=== PATIENT | female | born 1955 | race Caucasian/White ===

== ENCOUNTER 2019-10-15 08:44 | Inpatient (IN) ==
[2019-10-15] MEDS ORDERED: Senna TAB 8.6 mg TAB PO PRN (12:36)
[2019-10-15] MEDS ORDERED: Magnesium Hydroxide LIQ 30 ML UDC PO PRN (12:36)
[2019-10-15] MEDS: Amoxicillin 500 mg CAP (*) PO SCH ×2 (15:13→19:55)
[2019-10-15] MEDS: Enoxaparin 40 MG/0.4 ML SYR(*) SUBCUT SCH (17:58)
[2019-10-15] MEDS: Mometasone/Formoter 200/5 MDI INH SCH (19:56)
[2019-10-16 05:31] LABS: ABS Eosinophils 0.1 10^3/ul (0-0.6); ABS Lymphocytes 1.4 10^3/ul (1.0-4.8); ABS Monocytes 0.9 10^3/ul (0-0.8); Eosinophil % 1.1 %; Hematocrit 26 % (35-47); Mean Corpuscular HGB Conc 35 g/dL (31-36); Mean Corpuscular Hemoglobin 34 pg (27-31); Mean Corpuscular Volume 97 fL (80-97); Mean Platelet Volume 7.9 fL (7.4-10.4); Platelet Count 189 10^3/uL (150-450); Red Blood Count 2.67 10^6 /uL (3.70-4.87); Red Cell Distribution Width 13 % (10-15)
[2019-10-16 05:52] LABS: Albumin 2.9 g/dL (3.2-5.2); Albumin/Globulin Ratio 1.1 (1-3); BUN/Creatinine Ratio 21.3 (8-20); Calcium 8.6 mg/dL (8.6-10.3); EGFR African American 119.1 (>60); EGFR Non-African American 98.4 (>60); Globulin 2.6 g/dL (2-4); Potassium 4.6 mmol/L (3.5-5.0); Total Bilirubin 0.4 mg/dL (0.2-1.0); Total Protein 5.5 g/dL (6.4-8.9)
[2019-10-16] MEDS: Mometasone/Formoter 200/5 MDI INH SCH ×2 (08:43→20:10)
[2019-10-16] MEDS: Amoxicillin 500 mg CAP (*) PO SCH ×3 (08:44→20:09)
[2019-10-16] MEDS: Enoxaparin 40 MG/0.4 ML SYR(*) SUBCUT SCH (17:25)
[2019-10-16] MEDS: Albuterol HFA INHALER 8 gm MDI INH PRN (20:21)
[2019-10-17] MEDS: Amoxicillin 500 mg CAP (*) PO SCH ×3 (09:03→20:51)
[2019-10-17] MEDS: Mometasone/Formoter 200/5 MDI INH SCH ×2 (09:04→20:52)
[2019-10-17] MEDS: Enoxaparin 40 MG/0.4 ML SYR(*) SUBCUT SCH (16:24)
[2019-10-17] MEDS: Albuterol HFA INHALER 8 gm MDI INH PRN (16:29)
[2019-10-18] MEDS: Amoxicillin 500 mg CAP (*) PO SCH ×3 (08:18→20:23)
[2019-10-18] MEDS: Mometasone/Formoter 200/5 MDI INH SCH ×2 (08:18→20:23)
[2019-10-18] MEDS: Enoxaparin 40 MG/0.4 ML SYR(*) SUBCUT SCH (16:48)
[2019-10-19] MEDS: Amoxicillin 500 mg CAP (*) PO SCH ×3 (08:15→20:50)
[2019-10-19] MEDS: Mometasone/Formoter 200/5 MDI INH SCH ×2 (08:16→20:51)
[2019-10-19] MEDS: Enoxaparin 40 MG/0.4 ML SYR(*) SUBCUT SCH (16:42)
[2019-10-20] MEDS: Amoxicillin 500 mg CAP (*) PO SCH ×3 (11:16→20:04)
[2019-10-20] MEDS: Mometasone/Formoter 200/5 MDI INH SCH ×2 (11:16→20:05)
[2019-10-20] MEDS: Enoxaparin 40 MG/0.4 ML SYR(*) SUBCUT SCH (17:09)
[2019-10-20] MEDS: Potassium Chlor 10 meq TAB PO SCH (20:05)
[2019-10-21] MEDS: Mometasone/Formoter 200/5 MDI INH SCH ×2 (07:59→20:49)
[2019-10-21] MEDS: Albuterol HFA INHALER 8 gm MDI INH PRN (11:30)
[2019-10-21] MEDS: Enoxaparin 40 MG/0.4 ML SYR(*) SUBCUT SCH (17:02)
[2019-10-21] MEDS: Potassium Chlor 10 meq TAB PO SCH (20:49)
[2019-10-22 05:01] LABS: ABS Eosinophils 0.2 10^3/ul (0-0.6); ABS Lymphocytes 1.6 10^3/ul (1.0-4.8); ABS Monocytes 0.9 10^3/ul (0-0.8); Eosinophil % 3.3 %; Hematocrit 27 % (35-47); Hemoglobin 9.3 g/dL (12.0-16.0); Lymphocyte % 21.5 %; Mean Corpuscular HGB Conc 34 g/dL (31-36); Mean Corpuscular Hemoglobin 33 pg (27-31); Mean Corpuscular Volume 97 fL (80-97); Mean Platelet Volume 7.6 fL (7.4-10.4); Nucleated Red Blood Cells % 0.1; Platelet Count 365 10^3/uL (150-450); Red Cell Distribution Width 13 % (10-15); White Blood Count 7.2 10^3/uL (3.5-10.8)
[2019-10-22 05:20] LABS: BUN/Creatinine Ratio 32.6 (8-20); EGFR African American 74.1 (>60); EGFR Non-African American 61.3 (>60); Potassium 4.7 mmol/L (3.5-5.0)
[2019-10-22] MEDS: Mometasone/Formoter 200/5 MDI INH SCH ×2 (08:23→20:46)
[2019-10-22] MEDS: Enoxaparin 40 MG/0.4 ML SYR(*) SUBCUT SCH (16:54)
[2019-10-22] MEDS: Potassium Chlor 10 meq TAB PO SCH (20:45)
[2019-10-23 04:49] LABS: ABS Basophils 0.1 10^3/ul (0-0.2); ABS Eosinophils 0.2 10^3/ul (0-0.6); ABS Lymphocytes 1.5 10^3/ul (1.0-4.8); ABS Monocytes 0.8 10^3/ul (0-0.8); Eosinophil % 3.4 %; Hematocrit 28 % (35-47); Hemoglobin 9.4 g/dL (12.0-16.0); Lymphocyte % 20.2 %; Mean Corpuscular HGB Conc 34 g/dL (31-36); Mean Corpuscular Hemoglobin 33 pg (27-31); Mean Corpuscular Volume 98 fL (80-97); Mean Platelet Volume 7.6 fL (7.4-10.4); Nucleated Red Blood Cells % 0.1; Platelet Count 366 10^3/uL (150-450); Red Blood Count 2.85 10^6 /uL (3.70-4.87); Red Cell Distribution Width 13 % (10-15); White Blood Count 7.3 10^3/uL (3.5-10.8)
[2019-10-23 04:57] VITALS: BP 127/42
[2019-10-23 05:06] LABS: Albumin 3.2 g/dL (3.2-5.2); Albumin/Globulin Ratio 1.1 (1-3); BUN/Creatinine Ratio 37.9 (8-20); Calcium 9.1 mg/dL (8.6-10.3); EGFR African American 79.1 (>60); EGFR Non-African American 65.3 (>60); Globulin 2.9 g/dL (2-4); Potassium 4.6 mmol/L (3.5-5.0); Total Bilirubin 0.3 mg/dL (0.2-1.0); Total Protein 6.1 g/dL (6.4-8.9)
[2019-10-23] MEDS: Mometasone/Formoter 200/5 MDI INH SCH (08:45)
== END 2019-10-23 16:30 | disposition home health service (06) | DRG 560 ==
LOC: PMRU 11:33
PROVIDERS: ADMIT Physical Medicine & Rehabilitation; ATTEND Physical Medicine & Rehabilitation

== ENCOUNTER 2020-09-29 08:43 | Inpatient (IN) ==
[2020-09-29] MEDS ORDERED: Magnesium Hydroxide LIQ 30 ML UDC PO PRN (14:21)
[2020-09-29] MEDS ORDERED: Senna TAB 8.6 mg TAB PO PRN (14:21)
[2020-09-29] MEDS ORDERED: Albuterol HFA INHALER 8 gm MDI INH PRN (14:33)
[2020-09-29] MEDS ORDERED: oxyCODONE/Acetamin 5/325 mg TAB PO PRN (14:35)
[2020-09-29] MEDS: oxyCODONE/Acetamin 5/325 mg TAB PO PRN ×2 (17:13→20:54)
[2020-09-29] MEDS ORDERED: PTO:Budesonide/Formote 160/4.5(NF) MDI INH ONE (18:34)
[2020-09-30] MEDS: oxyCODONE/Acetamin 5/325 mg TAB PO PRN ×5 (03:23→21:48)
[2020-09-30 05:58] LABS: ABS Eosinophils 0.2 10^3/ul (0-0.6); ABS Lymphocytes 1.1 10^3/ul (1.0-4.8); ABS Monocytes 0.7 10^3/ul (0-0.8); ABS Neutrophils 4.4 10^3/ul (1.5-7.7); Eosinophil % 3.7 %; Hematocrit 26 % (35-47); Hemoglobin 9.1 g/dL (12.0-16.0); Lymphocyte % 17.2 %; Mean Corpuscular HGB Conc 35 g/dL (31-36); Mean Corpuscular Hemoglobin 32 pg (27-31); Mean Corpuscular Volume 94 fL (80-97); Mean Platelet Volume 8.7 fL (7.4-10.4); Nucleated Red Blood Cells % 0.1; Platelet Count 160 10^3/uL (150-450); Red Cell Distribution Width 16 % (10-15); White Blood Count 6.4 10^3/uL (3.5-10.8)
[2020-09-30 06:11] LABS: Albumin 2.8 g/dL (3.2-5.2); Calcium 8.3 mg/dL (8.6-10.3); Potassium 4.3 mmol/L (3.5-5.0); Total Bilirubin 0.5 mg/dL (0.2-1.0)
[2020-09-30 06:17] LABS: Albumin/Globulin Ratio 1.1 (1-3); EGFR African American 123.4 (>60); Globulin 2.5 g/dL (2-4); Total Protein 5.3 g/dL (6.4-8.9)
[2020-09-30] MEDS ORDERED: [UNRECOGNIZED DRUG - OTHER] INH SCH (09:00)
[2020-09-30] MEDS: FLUTICAS/UMECLI/VILANT 200-62.5-25 MDI (NF) INH SCH (12:40)
[2020-10-01] MEDS: oxyCODONE/Acetamin 5/325 mg TAB PO PRN ×5 (03:34→22:01)
[2020-10-01 05:47] LABS: ABS Eosinophils 0.2 10^3/ul (0-0.6); ABS Monocytes 0.7 10^3/ul (0-0.8); ABS Neutrophils 3.5 10^3/ul (1.5-7.7); Eosinophil % 4.1 %; Hematocrit 25 % (35-47); Hemoglobin 8.7 g/dL (12.0-16.0); Lymphocyte % 18.3 %; Mean Corpuscular HGB Conc 34 g/dL (31-36); Mean Corpuscular Hemoglobin 32 pg (27-31); Mean Corpuscular Volume 93 fL (80-97); Nucleated Red Blood Cells % 0.1; Platelet Count 177 10^3/uL (150-450); Red Blood Count 2.71 10^6 /uL (3.70-4.87); Red Cell Distribution Width 15 % (10-15); White Blood Count 5.5 10^3/uL (3.5-10.8)
[2020-10-01] MEDS: FLUTICAS/UMECLI/VILANT 200-62.5-25 MDI (NF) INH SCH (08:06)
[2020-10-02] MEDS: oxyCODONE/Acetamin 5/325 mg TAB PO PRN ×4 (03:10→19:51)
[2020-10-02] MEDS: FLUTICAS/UMECLI/VILANT 200-62.5-25 MDI (NF) INH SCH (08:55)
[2020-10-03] MEDS: oxyCODONE/Acetamin 5/325 mg TAB PO PRN ×5 (02:54→20:56)
[2020-10-03] MEDS: FLUTICAS/UMECLI/VILANT 200-62.5-25 MDI (NF) INH SCH (09:28)
[2020-10-04] MEDS: oxyCODONE/Acetamin 5/325 mg TAB PO PRN ×6 (01:08→23:05)
[2020-10-04] MEDS: FLUTICAS/UMECLI/VILANT 200-62.5-25 MDI (NF) INH SCH (09:38)
[2020-10-05] MEDS: oxyCODONE/Acetamin 5/325 mg TAB PO PRN ×5 (04:44→21:07)
[2020-10-05] MEDS: FLUTICAS/UMECLI/VILANT 200-62.5-25 MDI (NF) INH SCH (08:42)
[2020-10-06] MEDS: oxyCODONE/Acetamin 5/325 mg TAB PO PRN ×5 (01:40→22:40)
[2020-10-06] MEDS: FLUTICAS/UMECLI/VILANT 200-62.5-25 MDI (NF) INH SCH (10:00)
[2020-10-06] MEDS ORDERED: oxyCODONE/Acetamin 5/325 mg TAB PO PRN (16:13)
[2020-10-07] MEDS: oxyCODONE/Acetamin 5/325 mg TAB PO PRN ×5 (02:55→20:38)
[2020-10-07] MEDS: FLUTICAS/UMECLI/VILANT 200-62.5-25 MDI (NF) INH SCH (07:49)
[2020-10-07 08:22] LABS: ABS Eosinophils 0.3 10^3/ul (0-0.6); ABS Lymphocytes 1.6 10^3/ul (1.0-4.8); ABS Monocytes 0.6 10^3/ul (0-0.8); ABS Neutrophils 4.7 10^3/ul (1.5-7.7); Eosinophil % 3.5 %; Hematocrit 29 % (35-47); Hemoglobin 9.6 g/dL (12.0-16.0); Lymphocyte % 22.2 %; Mean Corpuscular HGB Conc 34 g/dL (31-36); Mean Corpuscular Hemoglobin 32 pg (27-31); Mean Corpuscular Volume 95 fL (80-97); Mean Platelet Volume 7.6 fL (7.4-10.4); Nucleated Red Blood Cells % 0.1; Platelet Count 380 10^3/uL (150-450); Red Cell Distribution Width 15 % (10-15); White Blood Count 7.2 10^3/uL (3.5-10.8)
[2020-10-07 08:41] LABS: Albumin 3.2 g/dL (3.2-5.2); Calcium 8.8 mg/dL (8.6-10.3); EGFR African American 104.7 (>60); EGFR Non-African American 86.6 (>60); Globulin 2.9 g/dL (2-4); Potassium 4.3 mmol/L (3.5-5.0); Total Protein 6.1 g/dL (6.4-8.9)
[2020-10-07 08:42] LABS: Albumin/Globulin Ratio 1.1 (1-3); Total Bilirubin 0.5 mg/dL (0.2-1.0)
[2020-10-08] MEDS: oxyCODONE/Acetamin 5/325 mg TAB PO PRN ×5 (01:22→19:17)
[2020-10-08] MEDS: FLUTICAS/UMECLI/VILANT 200-62.5-25 MDI (NF) INH SCH (10:30)
[2020-10-09] MEDS: oxyCODONE/Acetamin 5/325 mg TAB PO PRN ×6 (01:36→22:08)
[2020-10-09] MEDS: FLUTICAS/UMECLI/VILANT 200-62.5-25 MDI (NF) INH SCH (09:57)
[2020-10-10] MEDS: oxyCODONE/Acetamin 5/325 mg TAB PO PRN ×5 (05:36→22:14)
[2020-10-10] MEDS: FLUTICAS/UMECLI/VILANT 200-62.5-25 MDI (NF) INH SCH (09:33)
[2020-10-11] MEDS: oxyCODONE/Acetamin 5/325 mg TAB PO PRN ×4 (02:46→21:22)
[2020-10-11] MEDS: FLUTICAS/UMECLI/VILANT 200-62.5-25 MDI (NF) INH SCH (09:12)
[2020-10-12] MEDS: oxyCODONE/Acetamin 5/325 mg TAB PO PRN ×5 (01:51→21:52)
[2020-10-12] MEDS: FLUTICAS/UMECLI/VILANT 200-62.5-25 MDI (NF) INH SCH (10:39)
[2020-10-13] MEDS: oxyCODONE/Acetamin 5/325 mg TAB PO PRN ×5 (03:02→20:47)
[2020-10-13] MEDS: FLUTICAS/UMECLI/VILANT 200-62.5-25 MDI (NF) INH SCH (07:44)
[2020-10-14] MEDS: oxyCODONE/Acetamin 5/325 mg TAB PO PRN ×4 (01:44→15:03)
[2020-10-14 06:27] VITALS: BP 121/41
[2020-10-14 07:18] LABS: ABS Eosinophils 0.2 10^3/ul (0-0.6); ABS Lymphocytes 1.3 10^3/ul (1.0-4.8); ABS Monocytes 0.7 10^3/ul (0-0.8); ABS Neutrophils 3.6 10^3/ul (1.5-7.7); Eosinophil % 2.7 %; Hematocrit 29 % (35-47); Hemoglobin 9.7 g/dL (12.0-16.0); Lymphocyte % 22.5 %; Mean Corpuscular HGB Conc 33 g/dL (31-36); Mean Corpuscular Hemoglobin 32 pg (27-31); Mean Corpuscular Volume 97 fL (80-97); Platelet Count 358 10^3/uL (150-450); Red Blood Count 2.99 10^6 /uL (3.70-4.87); Red Cell Distribution Width 16 % (10-15); White Blood Count 5.8 10^3/uL (3.5-10.8)
[2020-10-14 07:31] LABS: Albumin 3.3 g/dL (3.2-5.2); Albumin/Globulin Ratio 1.1 (1-3); EGFR Non-African American 85.1 (>60); Globulin 3.1 g/dL (2-4); Potassium 4.3 mmol/L (3.5-5.0); Total Bilirubin 0.4 mg/dL (0.2-1.0); Total Protein 6.4 g/dL (6.4-8.9)
[2020-10-14] MEDS: FLUTICAS/UMECLI/VILANT 200-62.5-25 MDI (NF) INH SCH (10:25)
== END 2020-10-14 16:15 | disposition home or self-care (01) | DRG 560 ==
LOC: PMRU 14:15
PROVIDERS: ADMIT Physical Medicine & Rehabilitation; ATTEND Physical Medicine & Rehabilitation

== ENCOUNTER 2023-04-27 21:27 | Inpatient (IN) ==
[2023-04-27 22:41] LABS: ABS Eosinophils 0.1 10^3/uL (0.0-0.5); ABS Lymphocytes 1.4 10^3/uL (1.0-4.8); ABS Monocytes 0.7 10^3/uL (0.0-0.9); ABS Neutrophils 9.7 10^3/uL (1.5-7.6); Eosinophil % 0.5 %; Hematocrit 38.4 % (35-45); Hemoglobin 12.8 g/dL (11.5-14.3); Lymphocyte % 11.9 %; Mean Corpuscular Hemoglobin 32.4 pg (27-33); Mean Corpuscular Hgb Conc 33.3 g/dL (31-36); Mean Corpuscular Volume 97.1 fL (80-97); Mean Platelet Volume 9.3 fL (7.5-11.2); Platelet Count 226 10^3/uL (150-450); Red Blood Count 3.96 10^6/uL (3.63-4.92); Red Cell Distribution Width 13.8 % (12-17); White Blood Count 11.9 10^3/uL (3.8-11.8)
[2023-04-27 23:22] LABS: Albumin 3.4 g/dL (3.2-5.2); Albumin/Globulin Ratio 1.2 (1-3); Calcium 10.1 mg/dL (8.6-10.3); Creatinine, Serum 0.81 mg/dL (0.51-0.95); Globulin 2.8 g/dL (2-4); Potassium 2.1 mmol/L (3.5-5.0); Total Bilirubin 0.3 mg/dL (0.2-1.0); Total Protein 6.2 g/dL (6.4-8.9); eGFR CKD-EPI 78.5 (>60)
[2023-04-27] MEDS ORDERED: NS 0.9% 1000 ml BAG 1,000 ML IV ONE (23:22)
[2023-04-27] MEDS ORDERED: Potassium EFFERVES 25 meq TAB PO ONE (23:22)
[2023-04-27 23:43] LABS: Magnesium 2.5 mg/dL (1.9-2.7)
[2023-04-27] MEDS: KCL 20 MEQ/100 ML IVPREMIX 20 MEQ/100 ML BAG IV SCH (23:54)
[2023-04-28] MEDS ORDERED: Iohexol 300 (CONTRAST) 10 ML SDV IV ONE (00:34)
[2023-04-28] MEDS ORDERED: Magnesium Hydroxide LIQ 30 ML UDC PO PRN (02:19)
[2023-04-28] MEDS ORDERED: Al Hydrox/Mg Hydrox/Simet LIQ 30 ML UDC PO PRN (02:19)
[2023-04-28] MEDS ORDERED: Ondansetron 4 mg VIAL 2 MG/ML 2 ml VIAL IV PRN (02:19)
[2023-04-28] MEDS ORDERED: Polyethylene Glycol 3350 17 GM PACKET PO PRN (02:19)
[2023-04-28] MEDS: KCL 20 MEQ/100 ML IVPREMIX 20 MEQ/100 ML BAG IV SCH ×3 (02:27→06:43)
[2023-04-28] MEDS ORDERED: Albuterol HFA INHALER 8 gm MDI INH PRN (02:36)
[2023-04-28 03:25] LABS: Blood Urea Nitrogen 20 mg/dL (6-24); C Reactive Protein 9.08 mg/L (<8.01); CO2 Carbon Dioxide 17 mmol/L (22-32); Calcium 9.3 mg/dL (8.6-10.3); Chloride 113 mmol/L (101-111); Creatinine, Serum 0.75 mg/dL (0.51-0.95); Glucose 74 mg/dL (70-100); Magnesium 2.3 mg/dL (1.9-2.7); Sodium 138 mmol/L (135-145); eGFR CKD-EPI 86.1 (>60)
[2023-04-28 03:26] LABS: Anion Gap 8 mmol/L (2-16)
[2023-04-28] MEDS: Enoxaparin 40 MG/0.4 ML SYR SUBCUT SCH (04:00)
[2023-04-28 06:27] LABS: Urine Appearance Turbid; Urine Bilirubin Negative (Negative); Urine Blood 3+ (Negative); Urine Color Yellow; Urine Glucose Negative (Negative); Urine Ketones Trace (Negative); Urine Nitrite Negative (Negative); Urine Protein 2+(100 mg/dL) (Negative); Urine Specific Gravity 1.032 (1.002-1.030); Urine Urobilinogen Negative (Negative)
[2023-04-28 06:52] LABS: Urine Bacteria Absent (Absent); Urine Red Blood Cell 1+(3-5/hpf) (Absent); Urine Squamous Epithelial Cell Present (Absent); Urine White Blood Cell 2+(11-20/hpf) (Absent)
[2023-04-28] MEDS: Albuterol/Ipratropium NEB.SOL (2.5/0.5 MG) 3 ML NEB.SOLN INH SCH ×4 (08:22→19:09)
[2023-04-28] MEDS: FLUTICAS/UMECLI/VILANT 200-62.5-25 MDI (NF) INH SCH (09:11)
[2023-04-28 09:54] LABS: ABS Eosinophils 0.1 10^3/uL (0.0-0.5); ABS Lymphocytes 1.3 10^3/uL (1.0-4.8); ABS Monocytes 0.7 10^3/uL (0.0-0.9); ABS Neutrophils 7.8 10^3/uL (1.5-7.6); Hematocrit 37.4 % (35-45); Hemoglobin 12.6 g/dL (11.5-14.3); Mean Corpuscular Hemoglobin 32.8 pg (27-33); Mean Corpuscular Hgb Conc 33.6 g/dL (31-36); Mean Corpuscular Volume 97.5 fL (80-97); Mean Platelet Volume 9.1 fL (7.5-11.2); Platelet Count 220 10^3/uL (150-450); Red Blood Count 3.84 10^6/uL (3.63-4.92); Red Cell Distribution Width 14.2 % (12-17); White Blood Count 9.8 10^3/uL (3.8-11.8)
[2023-04-28 09:55] LABS: Eosinophil % 0.9 %; Lymphocyte % 12.9 %
[2023-04-28 10:16] LABS: ALT 173 U/L (7-52); Albumin 3.4 g/dL (3.2-5.2); Albumin/Globulin Ratio 1.3 (1-3); Alkaline Phosphatase 40 U/L (35-149); Anion Gap 11 mmol/L (2-16); Blood Urea Nitrogen 18 mg/dL (6-24); CO2 Carbon Dioxide 15 mmol/L (22-32); Calcium 9.4 mg/dL (8.6-10.3); Chloride 114 mmol/L (101-111); Creatinine, Serum 0.74 mg/dL (0.51-0.95); Globulin 2.6 g/dL (2-4); Glucose 74 mg/dL (70-100); Magnesium 2.4 mg/dL (1.9-2.7); Sodium 140 mmol/L (135-145); Total Bilirubin 0.4 mg/dL (0.2-1.0); eGFR CKD-EPI 87.5 (>60)
[2023-04-28] MEDS: Cholecalciferol (VIT D3) 1,000 unit TAB PO SCH (10:47)
[2023-04-28 11:06] LABS: Potassium Redraw 3.6 mmol/L (3.5-5.0)
[2023-04-29] MEDS: Enoxaparin 40 MG/0.4 ML SYR SUBCUT SCH (05:50)
[2023-04-29 06:26] LABS: ABS Eosinophils 0.1 10^3/uL (0.0-0.5); ABS Lymphocytes 1.5 10^3/uL (1.0-4.8); ABS Monocytes 0.7 10^3/uL (0.0-0.9); ABS Neutrophils 6.9 10^3/uL (1.5-7.6); Eosinophil % 1.1 %; Hematocrit 38.7 % (35-45); Hemoglobin 12.7 g/dL (11.5-14.3); Lymphocyte % 16.3 %; Mean Corpuscular Hemoglobin 32.6 pg (27-33); Mean Corpuscular Hgb Conc 32.8 g/dL (31-36); Mean Corpuscular Volume 99.4 fL (80-97); Mean Platelet Volume 9.1 fL (7.5-11.2); Platelet Count 182 10^3/uL (150-450); Red Blood Count 3.89 10^6/uL (3.63-4.92); Red Cell Distribution Width 14.3 % (12-17); White Blood Count 9.2 10^3/uL (3.8-11.8)
[2023-04-29 06:42] LABS: ALT 162 U/L (7-52); AST 309 U/L (13-39); Albumin 3.1 g/dL (3.2-5.2); Albumin/Globulin Ratio 1.2 (1-3); Alkaline Phosphatase 37 U/L (35-149); Anion Gap 11 mmol/L (2-16); Blood Urea Nitrogen 16 mg/dL (6-24); CO2 Carbon Dioxide 15 mmol/L (22-32); Calcium 9.5 mg/dL (8.6-10.3); Chloride 118 mmol/L (101-111); Creatinine, Serum 0.69 mg/dL (0.51-0.95); Globulin 2.5 g/dL (2-4); Glucose 73 mg/dL (70-100); Magnesium 2.3 mg/dL (1.9-2.7); Potassium 2.9 mmol/L (3.5-5.0); Sodium 144 mmol/L (135-145); Total Bilirubin 0.3 mg/dL (0.2-1.0); Total Protein 5.6 g/dL (6.4-8.9); eGFR CKD-EPI 93.9 (>60)
[2023-04-29] MEDS ORDERED: KCL 20 MEQ/100 ML IVPREMIX 20 MEQ/100 ML BAG IV ONE (07:05)
[2023-04-29] MEDS: Albuterol/Ipratropium NEB.SOL (2.5/0.5 MG) 3 ML NEB.SOLN INH SCH (07:19)
[2023-04-29] MEDS: FLUTICAS/UMECLI/VILANT 200-62.5-25 MDI (NF) INH SCH (07:33)
[2023-04-29] MEDS: Potassium Chlor 20 meq TAB.ER PO SCH ×2 (08:23→10:15)
[2023-04-29] MEDS: Cholecalciferol (VIT D3) 1,000 unit TAB PO SCH (08:26)
[2023-04-29] MEDS ORDERED: Albuterol/Ipratropium NEB.SOL (2.5/0.5 MG) 3 ML NEB.SOLN INH PRN (11:07)
[2023-04-29] MEDS ORDERED: Potassium Chlor 20 meq TAB.ER PO ONE (17:22)
[2023-04-29 18:47] LABS: Calcium 9.8 mg/dL (8.6-10.3); Creatinine, Serum 0.72 mg/dL (0.51-0.95); Potassium 3.7 mmol/L (3.5-5.0); eGFR CKD-EPI 90.5 (>60)
[2023-04-29 21:01] LABS: Phosphorus 1.4 mg/dL (2.5-5.0)
[2023-04-30] MEDS: Enoxaparin 40 MG/0.4 ML SYR SUBCUT SCH (05:59)
[2023-04-30 06:27] LABS: Hematocrit 33.6 % (35-45); Hemoglobin 11.2 g/dL (11.5-14.3); Mean Corpuscular Hemoglobin 32.9 pg (27-33); Mean Corpuscular Hgb Conc 33.4 g/dL (31-36); Mean Corpuscular Volume 98.7 fL (80-97); Mean Platelet Volume 9.6 fL (7.5-11.2); Platelet Count 202 10^3/uL (150-450); Red Blood Count 3.41 10^6/uL (3.63-4.92); Red Cell Distribution Width 14.5 % (12-17); White Blood Count 8.9 10^3/uL (3.8-11.8)
[2023-04-30 06:47] LABS: Calcium 9.1 mg/dL (8.6-10.3); Creatinine, Serum 0.63 mg/dL (0.51-0.95); Phosphorus 1.5 mg/dL (2.5-5.0); Potassium 3.8 mmol/L (3.5-5.0)
[2023-04-30] MEDS ORDERED: Potassium Phosphate IV 15 MMOL in NS 0.9% 250 ml 250 ML IVPB ONE (07:23)
[2023-04-30] MEDS: FLUTICAS/UMECLI/VILANT 200-62.5-25 MDI (NF) INH SCH (08:00)
[2023-04-30] MEDS: Cholecalciferol (VIT D3) 1,000 unit TAB PO SCH (09:17)
[2023-04-30 12:20] LABS: Venous Bicarbonate HCO3 15.4 mmol/L (24-28)
[2023-04-30 15:36] LABS: LDH 577 U/L (140-271)
[2023-04-30 16:06] LABS: Alcohol, S < 13 mg/dL (<13)
[2023-04-30] MEDS: Sodium Bicarb 650 mg (ANTACID) TAB PO SCH (20:05)
[2023-04-30] MEDS ORDERED: Potassium Citrate TAB (NF) 15 MEQ TABLET.ER PO SCH (21:00)
[2023-05-01] MEDS: Enoxaparin 40 MG/0.4 ML SYR SUBCUT SCH (06:19)
[2023-05-01] MEDS: FLUTICAS/UMECLI/VILANT 200-62.5-25 MDI (NF) INH SCH (07:14)
[2023-05-01] MEDS ORDERED: Potassium Phosphate IV 15 MMOL in NS 0.9% 250 ml 250 ML IVPB ONE (07:55)
[2023-05-01 08:42] LABS: Hematocrit 34.9 % (35-45); Hemoglobin 11.6 g/dL (11.5-14.3); Mean Corpuscular Hemoglobin 32.9 pg (27-33); Mean Corpuscular Hgb Conc 33.2 g/dL (31-36); Mean Corpuscular Volume 99.2 fL (80-97); Mean Platelet Volume 9.6 fL (7.5-11.2); Platelet Count 205 10^3/uL (150-450); Red Blood Count 3.52 10^6/uL (3.63-4.92); Red Cell Distribution Width 14.3 % (12-17); White Blood Count 7.9 10^3/uL (3.8-11.8)
[2023-05-01 08:59] LABS: Albumin/Globulin Ratio 1.4 (1-3); Creatinine, Serum 0.61 mg/dL (0.51-0.95); Globulin 2.2 g/dL (2-4); Magnesium 1.9 mg/dL (1.9-2.7); Phosphorus 3.5 mg/dL (2.5-5.0); Potassium 3.6 mmol/L (3.5-5.0); Total Bilirubin 0.2 mg/dL (0.2-1.0); Total Protein 5.2 g/dL (6.4-8.9); eGFR CKD-EPI 96.7 (>60)
[2023-05-01] MEDS: Sodium Bicarb 650 mg (ANTACID) TAB PO SCH ×2 (09:01→20:13)
[2023-05-01] MEDS: Cholecalciferol (VIT D3) 1,000 unit TAB PO SCH (09:04)
[2023-05-01 13:20] LABS: Immunoglobulin A 144 mg/dL (61 - 356); Immunoglobulin G 698 mg/dL (767 - 1590); Immunoglobulin M 159 mg/dL (37 - 286)
[2023-05-01 14:25] LABS: Kappa Free Light Chain 4.57 mg/dL; Lambda Free Light Chain, S 3.32 mg/dL
[2023-05-02] MEDS: Enoxaparin 40 MG/0.4 ML SYR SUBCUT SCH (05:35)
[2023-05-02] MEDS: Sodium Bicarb 650 mg (ANTACID) TAB PO SCH ×2 (08:36→20:57)
[2023-05-02] MEDS: Cholecalciferol (VIT D3) 1,000 unit TAB PO SCH (08:37)
[2023-05-02] MEDS: FLUTICAS/UMECLI/VILANT 200-62.5-25 MDI (NF) INH SCH (09:16)
[2023-05-02 23:37] LABS: Albumin 2.4 g/dL (3.4-4.7); Flag, M-protein Isotype Negative (Negative); Total Protein 5.2 g/dL (6.3 - 7.9)
[2023-05-03 06:33] LABS: Hematocrit 31.9 % (35-45); Hemoglobin 10.7 g/dL (11.5-14.3); Mean Corpuscular Hemoglobin 32.8 pg (27-33); Mean Corpuscular Hgb Conc 33.5 g/dL (31-36); Mean Corpuscular Volume 97.9 fL (80-97); Mean Platelet Volume 8.7 fL (7.5-11.2); Platelet Count 220 10^3/uL (150-450); Red Blood Count 3.26 10^6/uL (3.63-4.92); Red Cell Distribution Width 13.7 % (12-17); White Blood Count 8.9 10^3/uL (3.8-11.8)
[2023-05-03 06:56] LABS: Calcium 8.8 mg/dL (8.6-10.3); Creatinine, Serum 0.57 mg/dL (0.51-0.95); Magnesium 1.8 mg/dL (1.9-2.7); Potassium 3.6 mmol/L (3.5-5.0); eGFR CKD-EPI 98.3 (>60)
[2023-05-03] MEDS: FLUTICAS/UMECLI/VILANT 200-62.5-25 MDI (NF) INH SCH (07:23)
[2023-05-03] MEDS ORDERED: Potassium Chlor 20 meq TAB.ER PO ONE (07:36)
[2023-05-03] MEDS ORDERED: Magnesium Sulfate 2 gm BAG 2 GM/50 ML BAG IVPB ONE (07:37)
[2023-05-03] MEDS: Enoxaparin 40 MG/0.4 ML SYR SUBCUT SCH (09:50)
[2023-05-03] MEDS: Cholecalciferol (VIT D3) 1,000 unit TAB PO SCH (10:18)
[2023-05-03] MEDS: Sodium Bicarb 650 mg (ANTACID) TAB PO SCH (10:19)
[2023-05-03 12:47] VITALS: BP 102/47
== END 2023-05-03 14:30 | DRG 468 ==
LOC: EDHOLD 21:27 → ED 21:27 → SUATTDRO 04-28 02:19 → MED 04-28 07:48 → EDHOLD 04-28 08:09 → MEDTELE 04-28 11:05 → SUATTDRO 04-30 17:15
PROVIDERS: ADMIT Internal Medicine; ATTEND Student in an Organized Health Care Education/Training Program